=== PATIENT | female | born 1940 | race Caucasian/White ===

== ENCOUNTER 2024-08-12 13:47 | Emergency (ER) | payer MEDICARE, BC, SELFPAY ==
[2024-08-12] VITALS (10 sets, daily range): BP systolic 120–132; BP diastolic 68–73; PULSE 71–90; RESP 16; TEMP 36.8; O2SAT 95–98; BMI 24.7
--- NOTE | 2024-08-12 14:04 | ED.ALLEREA ---
HPI - Allergic Reaction General Time Seen by Provider: 14:04 Date Seen: 08/12/24 Chief complaint: Allergic Reaction Stated complaint: allergic reaction, pressure in chest Time Seen by Provider: 08/12/24 14:03 Source: patient and RN notes reviewed Mode of arrival: ambulatory Limitations: no limitations History of Present Illness HPI narrative: Up this 83-year-old female is ambulatory into the ED accompanied by her daughter with concern of allergic reaction after consuming a [employer] beef and broccoli dinner which did have sesame in the ingredients. 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 With her initial reaction, developed hives and body rash about an hour after eating. Was just treated with oral Benadryl. She states this time within minutes of eating, developed rash, felt itchy everywhere, had chest pressure with this. She did not have any nausea or vomiting, no abdominal pain, no oral pharyngeal swelling, no difficulty swallowing, no difficultly breathing. She did take 2 Benadryl at home and is already feeling better. The chest symptoms have resolved. She has no history of cardiac disease. She does not have EpiPen at home. She discusses with me that she is shocked at how quickly this came on this time in comparison to the initial event. Reviewed with her and her daughter that this can be the course of allergic reactions. They can become more severe with each exposure in certainly can be life-threatening with anaphylaxis. We discussed the need for her to avoid any sesame exposure if that is truly what her allergen is. She ingested this about noon, took 2 Benadryl sometime after that but did decide to come in to be evaluated. She is feeling better after the Benadryl has started to take effect, rash is improving per her report. She is not feeling itchy anymore. Chest symptoms improved. MD complaint: allergic reaction Related Data Home Medications ?Medication ?Instructions ?Recorded ?Confirmed amlodipine 2.5 mg tablet 2.5 mg PO DAILY 11/20/23 11/20/23 Previous Rx's ?Medication ?Instructions ?Recorded epinephrine 0.3 mg/0.3 mL 0.3 mg (0.3 mL) IM Q5-15M PRN #2 ea 08/12/24 injection, auto-injector (EpiPen) Allergies Allergy/AdvReac Type Severity Reaction Status Date / Time sesame seed Allergy Mild hives Verified 08/12/24 13:51 Review of Systems Status of ROS Reports: 6 or more systems reviewed and unremarkable except as noted in History and below Exam Const: Vital Signs, click to edit/add: Vital Signs - 24 hr 08/12/24 13:51 08/12/24 14:10 08/12/24 14:37 Temperature 98.3 F Pulse Rate 73 Pulse Rate [Pulse Oximeter] 90 Respiratory Rate 16 Blood Pressure 120/68 Blood Pressure [Ri ght Upper Arm] 132/73 Pulse Oximetry 97 98 96 Oxygen Delivery Me thod Room Air 08/12/24 14:38 08/12/24 14:50 08/12/24 15:00 Temperature Pulse Rate 74 74 72 Pulse Rate [Pulse Oximeter] Respiratory Rate Blood Pressure Blood Pressure [Ri ght Upper Arm] Pulse Oximetry 96 97 96 Oxygen Delivery Me thod 08/12/24 15:15 08/12/24 15:30 08/12/24 15:45 Temperature Pulse Rate 72 71 75 Pulse Rate [Pulse Oximeter] Respiratory Rate Blood Pressure Blood Pressure [Ri ght Upper Arm] Pulse Oximetry 95 96 97 Oxygen Delivery Me thod 08/12/24 16:00 Temperature Pulse Rate 74 Pulse Rate [Pulse Oximeter] Respiratory Rate Blood Pressure Blood Pressure [Ri ght Upper Arm] Pulse Oximetry 95 Oxygen Delivery Me thod This 83-year-old female is alert, interactive, no apparent distress. Maybe has some mild flushing in her cheeks but no discrete rash, sclera clear, conjugate gaze. No oral pharyngeal swelling, able speak in complete sentences. She is able to sit up, lungs are clear, good air entry, wheeze or crackles. Underneath her bra lying on her back, can see some mild erythema. CV regular rate and rhythm, no murmur, normal S1-S2, no S3-S4. Does have a few mild splotches on her anterior chest wall, more concentrated around bra line area. Abdomen is soft, nontender, nondistended, no organomegaly. No lower extremity edema, cannot seen the rash on her arms or lower legs at this time. Patient was ambulatory into the ED of her own accord. Documenting provider has reviewed patient's vital signs: yes Course Reevaluation(s) Time of Reevaluation #1: 15:38 Reevaluation #1: Her have checked on Jeanne, she is feeling much better. She has no facial flushing, no rash noted on her body any longer. Her initial troponin is normal, will check a follow-up EKG and troponin at 4:00 p.m. which is about 4 hours after the onset of her symptoms. Of note, she no longer has symptoms. Do think that this is likely from allergic reaction but will ensure no manifestation of underlying ischemic cardiac disease with her allergic reaction. Glucose was elevated and confirming a hemoglobin A1c, will discuss this with her when I have that result back. Time of Reevaluation #2: 16:45 Reevaluation #2: Have reviewed with patient her normal follow-up troponin. She states she feels great. Did discuss with her that I would have her do cardiac stress testing outpatient basis, this certainly could have been from her allergic reaction but it could also be an unmasking of underlying ischemic disease. Troponins are normal and she is asymptomatic now, do believe that she can pursue this outpatient. She thinks she has Claritin at home, will have her take this daily for the next couple of days, p.r.n. Benadryl. She states she surprised that her rash went away so quickly, took a few days last time. Reviewed with her that it is likely the other medicines we gave. We did also review the hemoglobin A1c of 5.8% diagnosed sing prediabetes, something for her to follow up outpatient with her primary. Vital Signs Vital signs: Initial Vital Signs Temperature 98.3 F 08/12/24 13:51 Temperature Source Temporal Artery Scan 08/12/24 13:51 Pulse Rate 90 08/12/24 13:51 Respiratory Rate 16 08/12/24 13:51 Blood Pressure 132/73 08/12/24 13:51 Blood Pressure Mean 92 08/12/24 13:51 Pulse Oximetry 97 08/12/24 13:51 Oxygen Delivery Method Room Air 08/12/24 13:51 Vital Signs Temperature 98.3 F 08/12/24 13:51 Pulse Rate 90 08/12/24 13:51 Respiratory Rate 16 08/12/24 13:51 Blood Pressure 132/73 08/12/24 13:51 Pulse Oximetry 97 08/12/24 13:51 Oxygen Delivery Method Room Air 08/12/24 13:51 Temperature 98.3 F 08/12/24 13:51 Pulse Rate 74 08/12/24 16:00 Respiratory Rate 16 08/12/24 13:51 Blood Pressure 120/68 08/12/24 14:37 Pulse Oximetry 95 08/12/24 16:00 Oxygen Delivery Method Room Air 08/12/24 13:51 Medications Administered Medications: Discontinued Medications Generic Name Dose Route Start Last Admin Trade Name Fregeoffrey PRN Reason Stop Dose Admin Cetirizine HCl 10 mg 08/12/24 14:11 08/12/24 14:47 Cetirizine Hcl 10 Mg Tablet PO 08/12/24 14:12 10 mg ONCE ONE Administration Dexamethasone 10 mg 08/12/24 14:10 08/12/24 14:47 Dexamethasone 10 Mg/Ml Inj IVP 08/12/24 14:11 10 mg ONCE ONE Administration Famotidine 20 mg 08/12/24 14:10 08/12/24 14:47 Famotidine 10 Mg/Ml Inj IVP 08/12/24 14:11 20 mg ONCE ONE Administration MDM - Allergic Reaction MDM Narrative Medical decision making narrative: Patient is obviously had a subsequent allergic reaction, she believes it is the sesame but think we need to consider potential alternate allergens within these meals. We discussed the progression of allergic reactions. She will be monitored on pulse oximetry, cardiac monitoring. Her EKG will be obtained, do need to consider cardiac effects. She is currently hemodynamically stable and not exhibiting anaphylaxis. Will get a troponin, will likely have to do a follow-up troponin, initial symptoms started around noon and it is already 2:00 p.m.. We will monitor here for at least 2 hours, by that time frame she will have had a 4 hour window. Will also get Zyrtec, IV dexamethasone and IV Pepcid. She really should go home with a prescription for EpiPen and recommendations to follow-up with community development technician. Lab Data Attestation: I reviewed the patient's lab results. Labs: Lab Results 08/12/24 08/12/24 08/12/24 Range/Units 14:31 15:31 16:09 WBC 7.67 (4.50-11.00) K/uL RBC 4.16 (4.00-5.20) m/uL Hgb 12.5 (12.0-16.0) gm/dL Hct 38.4 (33.0-51.0) % MCV 92 (80-100) fL MCH 30 (26-34) pg MCHC 33 (32-36) gm/dL RDW Coeff of Tae 12.5 (11.5-15.5) % Plt Count 292 (140-440) K/uL Neut % (Auto) 62.1 (42.0-72.0) % Lymph % (Auto) 28.2 (20-44) % [place] % (Auto) 7.4 (0.0-11.0) % Eos % (Auto) 1.0 (0.0-7.0) % Baso % (Auto) 0.5 (0.0-3.0) % Neut # (Auto) 4.76 (1.7-7.0) K/uL Lymph # (Auto) 2.16 (0.90-2.90) K/uL [place] # (Auto) 0.60 (0.00-0.90) K/UL Eos # (Auto) 0.08 (0.00-0.50) K/uL Baso # (Auto) 0.04 (0.00-0.30) K/uL Abs Immat Gran (auto) 0.06 (0.00-0.30) K/uL Imm/Tot Granulo (auto) 0.8 % Sodium 137 (135-149) mmol/L Potassium 3.8 (3.6-5.1) mmol/L Chloride 101 (96-114) mmol/L Carbon Dioxide 27 (20-32) mmol/L Anion Gap 9 (7-15) mEq/L BUN 18 (7-30) mg/dL Creatinine 0.7 (0.5-1.5) mg/dL Estimated Creat Clear 33.12 Estimated GFR 85 ml/min Glucose 200 H (60-115) mg/dL Hemoglobin A1c 5.8 H (0-5.6) % Calcium 8.7 (8.4-10.6) mg/dL Troponin I < 0.01 L < 0.01 L (0.01-0.04) ng/mL Lab Acknowledgement Test Added ECG Data Attestation: I personally reviewed and interpreted this ECG as follows: (Sinus rhythm, 80 beats per minute. Potential ST segment change without flipped T-waves in anterior precordial leads.) ECG interpretation date: 08/12/24 ECG interpretation time: 14:22 Interpretation: EKG timed 6:11 p.m. shows normal sinus rhythm, 71 beats per minute. Nonspecific T-wave changes but certainly not as pronounced on initial EKG. Discharge Plan Discharge Clinical Impression: Pre-diabetes Allergic reaction Qualifiers: Encounter type: initial encounter Qualified Code(s): T78.40XA - Allergy, unspecified, initial encounter Patient Disposition: Home, Self-Care Condition: Stable Instructions: Food Allergy (ED) Additional Instructions: Need to follow-up with primary care provider within the next few weeks. You will need to try to employee lifestyle modification to prevent occult diabetes, can talk to your primary care provider about this further. I would also discuss with your primary care provider about referral to community development technician for further testing regarding food allergy to ensure you know exactly what you are allergic to. I know you suspect sesame but there is always the possibility that it could be something else within those meals. Certainly avoid sesame for right now in make sure you read package ingredients on purchased food. Will send in EpiPen for you if you have significant reaction the future, do need to take this. I would also talk to your primary care provider about maybe having a baseline cardiac stress test (ask about Lexiscan if you do not think you can do the treadmill for stress echo, a walking Lexiscan is flat and slow, can also be done nonwalking). Do recommend that you take Claritin daily for the next 1-2 days, can use Benadryl if needed. Should your reaction return, please call 911 and seek medical evaluation. Activity Level: Activity as Tolerated Prescriptions: New epinephrine [EpiPen] 0.3 mg/0.3 mL auto-injector 0.3 mg IM Q5-15M PRNQty: 2 0RF Rx Instructions: do not exceed 3 doses per episode No Action amlodipine 2.5 mg tablet 2.5 mg PO DAILY Follow Up/Referrals: Galina Villaseñor MD [Primary Care Provider] - Stand Alone Forms: [employer] Info Instructions
[2024-08-12 14:43] LABS: Basophils Absolute Auto 0.04 K/uL (0.00-0.30); Basophils Percent Auto 0.5 % (0.0-3.0); Eosinophils Absolute Auto 0.08 K/uL (0.00-0.50); Hematocrit 38.4 % (33.0-51.0); Hemoglobin* 12.5 gm/dL (12.0-16.0); Immature Granulocytes Abs Auto 0.06 K/uL (0.00-0.30); Immature Granulocytes Pct Auto 0.8 %; Lymphocytes Absolute Auto 2.16 K/uL (0.90-2.90); Lymphocytes Percent Auto 28.2 % (20-44); Mean Corpuscular HGB Conc 33 gm/dL (32-36); Mean Corpuscular Hemoglobin 30 pg (26-34); Mean Corpuscular Volume 92 fL (80-100); Monocytes Percent Auto 7.4 % (0.0-11.0); Neutrophils Absolute Auto 4.76 K/uL (1.7-7.0); Neutrophils Percent Auto 62.1 % (42.0-72.0); Platelet Count* 292 K/uL (140-440); RDW Coefficient of Variation % 12.5 % (11.5-15.5); Red Blood Count 4.16 m/uL (4.00-5.20); White Blood Count* 7.67 K/uL (4.50-11.00)
[2024-08-12] MEDS: dexAMETHasone 10 MG/ML inj IVP (14:47)
[2024-08-12] MEDS: CETIRIZINE HCL 10 MG TABLET PO (14:47)
[2024-08-12] MEDS: FAMOTIDINE 10 MG/ML inj 20 MG IVP (14:47)
[2024-08-12 14:52] LABS: Chloride* 101 mmol/L (96-114); Sodium* 137 mmol/L (135-149)
[2024-08-12 14:53] LABS: Potassium* 3.8 mmol/L (3.6-5.1)
[2024-08-12 14:55] LABS: Anion Gap 9 mEq/L (7-15); Blood Urea Nitrogen* 18 mg/dL (7-30); Carbon Dioxide* 27 mmol/L (20-32); Creatinine* 0.7 mg/dL (0.5-1.5); Est. Creatinine Clearance* 33.12; Estimated Glomerular Filt Rate 85 ml/min
[2024-08-12 14:56] LABS: Calcium* 8.7 mg/dL (8.4-10.6); Glucose* 200 mg/dL (60-115)
[2024-08-12 15:08] LABS: Troponin I* < 0.01 ng/mL (0.01-0.04)
[2024-08-12 15:12] LABS: Slide Review Reflex No
[2024-08-12 16:09] LABS: Hemoglobin A1C* 5.8 % (0-5.6)
[2024-08-12 16:44] LABS: Troponin I* < 0.01 ng/mL (0.01-0.04)
== END 2024-08-12 17:06 | disposition home or self-care (01) ==
PROVIDERS: Emergency Provider Family Medicine; PCP Family Medicine
DX: T78.1XXA Other adverse food reactions, not elsewhere classified, initial encounter (principal); R21 Rash and other nonspecific skin eruption; R73.03 Prediabetes
CPT/HCPCS: 36415; 80048; 83036; 84484; 85025; 93005; 94761; 96374; 96375; 99284; A9270; J1100; S0028